=== PATIENT | female | born 2000 | race African-American/Black ===

== ENCOUNTER 2024-01-17 14:12 | Emergency (ER) | payer OTHER ==
[2024-01-17 14:16] VITALS: BP 124/86; PULSE 88; RESP 18; TEMP 98.4; BMI 38.0
[2024-01-17] MEDS ORDERED: PENICILLIN G BENZATHINE 1,200,000 UNIT/2 ML PFS IM ONE (14:44)
[2024-01-17] MEDS ORDERED: DEXAMETHASONE SOD PHOSPHATE 10 MG/1 ML VIAL ONE (14:44)
[2024-01-17] MEDS: PENICILLIN G BENZATHINE 1,200,000 UNIT/2 ML PFS IM ONE (14:50)
[2024-01-17] MEDS: DEXAMETHASONE SOD PHOSPHATE 10 MG/1 ML VIAL IM ONE (14:50)
[2024-01-17] MEDS ORDERED: ACETAMINOPHEN 500 MG TABLET (FP) ONE (14:59)
[2024-01-17] MEDS: ACETAMINOPHEN 500 MG TABLET (FP) PO ONE (14:59)
[2024-01-17 15:17] LABS: THROAT:GRP A STREP NOT DETECTED (NOTDETECTED)
== END 2024-01-17 15:01 | disposition home or self-care (01) ==
LOC: JERFT 14:12
PROC: 3E02329 Introduction of Other Anti-infective into Muscle, Percutaneous Approach (ICD-10-PCS; principal; 2024-01-17)
PROC: 3E023GC Introduction of Other Therapeutic Substance into Muscle, Percutaneous Approach (ICD-10-PCS; 2024-01-17)
DX: J02.0 Streptococcal pharyngitis (principal); R09.81 Nasal congestion; M79.10 Myalgia, unspecified site; R13.10 Dysphagia, unspecified; Z20.822 Contact with and (suspected) exposure to COVID-19
CPT/HCPCS: 0241U-QW; 87651; 99284-25; J1100